=== PATIENT | male | born 1950 | race Caucasian/White ===

== ENCOUNTER 2020-03-20 10:41 | Emergency (ER) | payer MEDICARE, SELFPAY ==
--- NOTE | ~2020-03-20 | CT_ITS ---
EXAMINATION: CT brain wo con INDICATION: Behavioral changes, history of dementia COMPARISON: None TECHNIQUE: Standard unenhanced head CT. The dose-length product (DLP) was 605.33 mGy-cm. The mA was a djusted according to patient size. Iterative reconstruction technique was employed. FINDINGS: There is no acute intraparenchymal hemorrhage. No evidence of mass lesion. No evidence of a cute infarction. There is mild periventricular and subcortical hypodensity probably related to small vessel ischemic disease. There is mild prominence of the sulci and ventricles related to cerebral atr ophy. Intracranial calcified cerebral atherosclerosis is noted. There are no extra-axial collections. There is no mass effect or midline shift. The orbits and soft tissues are unremarkable. The visuali zed sinuses and mastoid air cells are well aerated. IMPRESSION: 1. No acute intracranial abnormality. 2. Age related findings. Reviewed, dictated and finalized at location A. E GLASS GRINDER
[2020-03-20 10:40] VITALS: PULSE 66; RESP 16; TEMP 36.8; O2SAT 100
--- NOTE | 2020-03-20 10:58 | ECG_ITS ---
Measurements Intervals [place] Rate: 68 P: 67 SC: 150 QRS: -15 QRSD: 86 T: 30 QT: 399 QTc: 426 Interpretive Statements SINUS RHYTHM NORMAL ECG Electronically Signed On 03-20-2020 15:07:55 CATTERY OPERATOR by Srinivasa Hair D.O.
[2020-03-20 11:05] LABS: Basophils Percent Auto 0.8 % (0.2-1.2); Eosinophils Absolute Auto 0.1 K/mm3 (0-0.3); Eosinophils Percent Auto 1.8 % (0-4.4); Hematocrit 47.9 % (42.0-52.0); Hemoglobin 16.7 g/dL (14.0-18.0); Immature Granulocyte Absolute 0.02 K/mm3 (0.00-0.031); Immature Granulocyte Percent A 0.4 % (0-0.5); Lymphocytes Absolute Auto 0.89 K/mm3 (0.9-3.2); Lymphocytes Percent Auto 17.7 % (18.3-44.2); Mean Corpuscular HGB Conc 34.9 g/dl (32-36); Mean Corpuscular Hemoglobin 34.2 pg (26-34); Monocytes Absolute Auto 0.4 K/mm3 (0.1-0.6); Monocytes Percent Auto 6.9 % (2.6-8.5); Neutrophils Absolute Auto 3.7 K/mm3 (1.3-6.7); Neutrophils Percent Auto 72.4 % (45.5-73.1); Platelet Count Result 167 k/mm3 (150-375); Red Blood Count 4.89 M/mm3 (4.6-6.20); Red Cell Distribution Width 12.1 % (11.5-14.5)
[2020-03-20 11:06] VITALS: BP 156/78; PULSE 65; RESP 16; O2SAT 98
[2020-03-20 11:17] LABS: Alanine Aminotransferase 24 U/L (4-50); Albumin Level 4.8 g/dL (3.5-5.1); Alkaline Phosphatase 76 U/L (38-126); Anion Gap 9 mmol/L (8-16); Aspartate Amino Transferase 31 U/L (17-59); Bilirubin,Total 1.3 mg/dL (0.2-1.3); Blood Urea Nitrogen 18 mg/dL (9-20); Calcium 9.6 mg/dL (8.4-10.2); Carbon Dioxide 31 mmol/L (22-30); Chloride 102 mmol/L (98-107); Estimated CRCL calculation 75 ml/min; Estimated Glomerular Filt Rate > 60; Glucose 182 mg/dL (75-110); Potassium 3.7 mmol/L (3.4-5.0); Sodium 142 mmol/L (137-145)
--- NOTE | 2020-03-20 11:36 | ED.AMS ---
HPI - Altered Mental Status General Chief Complaint: Altered Mental Status Stated Complaint: outburst Time Seen by Provider: 03/20/20 10:51 Source: patient and family Mode of arrival: ambulatory Limitations: dementia History of Present Illness HPI narrative: This patient is a 69 year old male with history of dementia who presents with his for evaluation of a behavior change. His states started a week ago he has been more agitated and wondering around a night. She reports he is telling her that he hates her . She reports that a few days ago she was telling him to stop doing something and he grabbed her shoulders. She reports a local doctor that is a family friend told her to come to ER. She reports his PCP changed his dementia medication in January. He was placed back on his original medication 1.5 weeks ago and she noticed a changed in behavior then. Patient has no complaints. Related Data Allergies Allergy/AdvReac Type Severity Reaction Status Date / Time ciprofloxacin AdvReac Mild headache Verified 03/20/20 11:05 Review of Systems Review of Systems: All systems reviewed & are unremarkable except as noted in HPI and below Constitutional: Constitutional: Denies chills and Denies fever(s) Respiratory: Respiratory: Denies cough and Denies dyspnea Gastrointestinal: Gastrointestinal: Denies abdominal pain, Denies diarrhea, Denies nausea and Denies vomiting Genitourinary: Genitourinary: Denies dysuria and Denies urinary frequency Neurologic: Denies headache(s) and Denies numbness PMFSH Past Medical History Medical History Controlled diabetes mellitus without long-term current use of insulin Dementia Diabetes mellitus with hyperglycemia Mixed hyperlipidemia 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 Surgical History Surgical History S/P Mohs surgery for basal cell carcinoma Family History Family History Father Family history of type 2 diabetes mellitus Mother Family history of type 2 diabetes mellitus Other Diabetes mellitus Family history of cardiovascular disease Family history of kidney disease Social History Social History (Updated 03/10/20 @ 10:23 by Ashlie Giron) Social History: Smoking status: Never smoker Second hand tobacco smoke exposure: No Alcohol intake: never Substance use: never Substance use type: does not use Gender identity (if verbalized by the patient): Male Exam Const: General: no acute distress and alert Limitations: other limitations (oriented to self and hospital) HENMT: Head: normocephalic and atraumatic Face and sinus: face symmetric Throat: posterior oropharynx normal Eyes: Pupils: Equal, round and reactive pupils present EOM: EOMs intact bilaterally Chest: Chest palpation & inspection: normal inspection of the chest Resp: Effort & Inspection: normal respiratory effort and no retractions Auscultation: clear to auscultation bilaterally Cardio: Rate: regular rate Rhythm: regular rhythm Heart sounds: no murmurs GI: GI Palp: Yes Soft to palpation, No Tenderness to palpation present (GI), No Guarding due to palpation present (GI) and No Rigid due to palpation Skin: General skin exam: normal color Rashes: no rashes Neuro: General: moves all extremities, no meningeal signs and CN's II-XI intact bilaterally Psych: Mental Status: mental status grossly normal Affect: normal affect Attitude: cooperative Course Reevaluation(s) Reevaluation #1: I discussed with patient and that labs and CT are unremarkable. This appears to be progression of dementia. He has an appointment with emlvin MILLER on Saturday. Date: 03/20/20 Time: 12:35 Vital Signs Vital signs: Vital Signs Temperature 98.2 F 03/20/20 10:40 Pulse Rate 66 03/20/20 10:40 Respirato
[2020-03-20 12:23] LABS: Add Urine Microscopic? YES; Appearance Urine Clear (Clear); Bilirubin Urine Negative (Negative); Blood Urine Negative (Negative); Color Urine Yellow (Yellow); Glucose Urine UA 1+ mg/dL (Negative); Ketones Urine Negative (Negative); Leukocyte Esterase Ur Negative LEU/UL (Negative); Mucus Urine Rare /lpf; Nitrate Urine Negative (Negative); Protein Urine Negative (Negative); RBC Urine 0-2 /hpf (0-2); Specific Grav Ur 1.013 (1.001-1.035); Squamous Epithelial Cell Urine Rare /hpf (Few); Urobilinogen Urine Negative mg/dL (<2.0); WBC Urine 0-3 /hpf
[2020-03-20 12:37] VITALS: BP 156/70; PULSE 65; RESP 18; TEMP 36.3; O2SAT 100
== END 2020-03-20 13:07 | disposition home or self-care (01) ==
PROVIDERS: Emergency Provider General Practice; PCP Family Medicine
DX: F03.91 Unspecified dementia, unspecified severity, with behavioral disturbance (principal); E11.9 Type 2 diabetes mellitus without complications; E78.2 Mixed hyperlipidemia; R90.82 White matter disease, unspecified; Z85.828 Personal history of other malignant neoplasm of skin
CPT/HCPCS: 36415; 70450; 80053; 81001; 85025; 93005; 99284

== ENCOUNTER 2020-07-09 21:12 | Emergency (ER) | payer MEDICARE, SELFPAY ==
--- NOTE | ~2020-07-09 | CT_ITS ---
EXAMINATION: CT brain wo con INDICATION: Altered mental status COMPARISON: None TECHNIQUE: Standard unenhanced head CT. The dose-length product (DLP) was 605.33 mGy-cm. The mA was a djusted according to patient size. Iterative reconstruction technique was employed. FINDINGS: There is no acute intraparenchymal hemorrhage. No evidence of mass lesion. No evidence of a cute infarction. There is mild periventricular and subcortical hypodensity probably related to small vessel ischemic disease. There is mild prominence of the sulci and ventricles related to cerebral atr ophy. Intracranial calcified cerebral atherosclerosis is noted. There are no extra-axial collections. There is no mass effect or midline shift. The orbits and soft tissues are unremarkable. The visuali zed sinuses and mastoid air cells are well aerated. IMPRESSION: 1. No acute intracranial abnormality. 2. Age related findings. Reviewed, dictated and finalized at location A. UATION ENGINEER
[2020-07-09 21:01] VITALS: BP 149/74; PULSE 85; RESP 16; TEMP 36.4; O2SAT 96
--- NOTE | 2020-07-09 21:47 | ED.GENADULT ---
HPI - General Adult General Chief complaint: Unspecified Stated complaint: aggitation Time Seen by Provider: 07/09/20 21:47 History of Present Illness HPI narrative: Patient is a 69-year-old gentleman who presents the emergency department with chief complaint of aggressive behavior. Patient is a resident of a memory care unit and has had more confusion. The facility is concerned that he may have a UTI. The family states that he was recently started on trazodone for agitation. They report that he is not really been sleeping well over the last several days. The facility reported that he got aggressive with one of the nurses but when EMS arrived he became docile. Related Data Home Medications Medication Instructions Recorded Confirmed clonazepam 07/09/20 07/09/20 famotidine 20 mg PO DAILY 07/09/20 07/09/20 melatonin 5 mg PO HS PRN 07/09/20 07/09/20 memantine 10 mg PO QPM 07/09/20 07/09/20 trazodone 50 mg PO TID PRN 07/09/20 07/09/20 Allergies Allergy/AdvReac Type Severity Reaction Status Date / Time ciprofloxacin AdvReac Mild headache Verified 03/20/20 11:05 Review of Systems Review of Systems: Narrative: A 10 system review of systems was completed on the patient and is negative except for what is stated in the HPI. Nursing and ancillary documentation was reviewed. 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 Surgical History Surgical History S/P Mohs surgery for basal cell carcinoma Family History Family History Father Family history of type 2 diabetes mellitus Mother Family history of type 2 diabetes mellitus Other Diabetes mellitus Family history of cardiovascular disease Family history of kidney disease Social History Social History Social History: Smoking status: Never smoker Second hand tobacco smoke exposure: No Alcohol intake: never Substance use: never Substance use type: does not use Gender identity (if verbalized by the patient): Male Exam Narrative: Exam Narrative: GENERAL: Well-appearing, well-nourished, and in no acute distress. HEAD: Normocephalic, atraumatic. EYES: PERRLA and EOMI. ENT: Nares clear, no rhinorrhea or epistaxis. Mucous membranes moist. NECK: Supple. CHEST: Clear to auscultation. No respiratory distress. HEART: Regular rate and rhythm. No murmur heard. Normal peripheral pulses. ABDOMEN: Soft, nontender, nondistended, normal active bowel sounds. EXTREMITIES: Normal range of motion. No edema. SKIN: Warm, dry, no rash. NEURO: No focal deficits. Alert confused at neurological baseline. PSYCH: Normal mood and affect. Course Course Emergency Course: Laboratory studies are within normal limits urinalysis shows no evidence of UTI CT head shows no evidence of acute abnormality. Vital Signs Vital signs: Vital Signs Temperature 36.4 C L 07/09/20 21:01 Pulse Rate 85 07/09/20 21:01 Respiratory Rate 16 07/09/20 21:01 Blood Pressure 149/74 H 07/09/20 21:01 Pulse Oximetry 96 07/09/20 21:01 Temperature 36.4 C L 07/09/20 21:01 Pulse Rate 67 07/10/20 04:00 Respiratory Rate 16 07/10/20 04:00 Blood Pressure 151/76 H 07/10/20 04:00 Pulse Oximetry 100 07/10/20 04:00 Medical Decision Making Vital Signs Vital Signs: Vital Signs Temperature 36.4 C L 07/09/20 21:01 Pulse Rate 85 07/09/20 21:01 Respiratory Rate 16 07/09/20 21:01 Blood Pressure 149/74 H 07/09/20 21:01 Pulse Oximetry 96 07/09/20 21:01 Temperature 36.4 C L 07/09/20 21:01 Pulse Rate 67 07/10/20 04:00
--- NOTE | 2020-07-09 21:48 | ECG_ITS ---
Measurements Intervals [place] Rate: 66 P: 64 NV: 143 QRS: -15 QRSD: 83 T: 12 QT: 414 QTc: 435 Interpretive Statements SINUS RHYTHM DELAYED PRECORDIAL R/S TRANSITION BORDERLINE T WAVE ABNORMALITY- INFERIOR LEADS BORDERLINE ECG Electronically Signed On 07-10-2020 7:41:22 MAP MAKER by Srinivasa Hair D.O.
[2020-07-09 22:06] LABS: Basophils Percent Auto 0.7 % (0.2-1.2); Eosinophils Absolute Auto 0.1 K/mm3 (0-0.3); Eosinophils Percent Auto 2.8 % (0-4.4); Hematocrit 42.5 % (42.0-52.0); Immature Granulocyte Absolute 0.02 K/mm3 (0.00-0.031); Immature Granulocyte Percent A 0.5 % (0-0.5); Lymphocytes Absolute Auto 0.65 K/mm3 (0.9-3.2); Mean Corpuscular HGB Conc 35.3 g/dl (32-36); Mean Corpuscular Hemoglobin 33.9 pg (26-34); Mean Corpuscular Volume 96.2 fl (80-100); Mean Platelet Volume 9.5 fl (7.4-10.4); Monocytes Absolute Auto 0.4 K/mm3 (0.1-0.6); Neutrophils Absolute Auto 3.1 K/mm3 (1.3-6.7); Platelet Count Result 163 k/mm3 (150-375); Red Blood Count 4.42 M/mm3 (4.6-6.20); Red Cell Distribution Width 11.9 % (11.5-14.5); White Blood Count 4.3 K/mm3 (4.5-10.0)
[2020-07-09 22:18] LABS: Alanine Aminotransferase 55 U/L (4-50); Albumin Level 4.1 g/dL (3.5-5.1); Alkaline Phosphatase 74 U/L (38-126); Anion Gap 6 mmol/L (8-16); Aspartate Amino Transferase 51 U/L (17-59); Bilirubin,Total 0.5 mg/dL (0.2-1.3); Blood Urea Nitrogen 16 mg/dL (9-20); Calcium 9.2 mg/dL (8.4-10.2); Carbon Dioxide 32 mmol/L (22-30); Chloride 104 mmol/L (98-107); Estimated CRCL calculation 81 ml/min; Estimated Glomerular Filt Rate > 60; Glucose 185 mg/dL (75-110); Potassium 3.5 mmol/L (3.4-5.0); Sodium 142 mmol/L (137-145)
[2020-07-09 22:19] LABS: Acetaminophen < 10 ug/mL (10-30); Ethanol < 10 mg/dL (<10); Salicylate < 1.0 mg/dL (2-20)
[2020-07-09 22:30] LABS: Add Urine Microscopic? YES; Appearance Urine Clear (Clear); Bilirubin Urine Negative (Negative); Blood Urine Negative (Negative); Color Urine Yellow (Yellow); Glucose Urine UA 1+ mg/dL (Negative); Ketones Urine Negative (Negative); Leukocyte Esterase Ur Negative LEU/UL (Negative); Mucus Urine Rare /lpf; Nitrate Urine Negative (Negative); Protein Urine Negative (Negative); RBC Urine 0-2 /hpf (0-2); Specific Grav Ur 1.014 (1.001-1.035); Squamous Epithelial Cell Urine Rare /hpf (Few); WBC Urine 0-3 /hpf
[2020-07-09 22:43] LABS: Amphetamine Screen Urine Negative (Negative); Barbiturate Screen Urine Negative (Negative); Benzodiazepines Screen Urine Negative (Negative); Cannabinoid Screen Urine Negative (Negative); Cocaine Screen Urine Negative (Negative); Methadone Screen Urine Negative (Negative); Opiate Screen Urine Negative (Negative); Phencyclidine Screen Urine Negative (Negative)
--- NOTE | 2020-07-10 01:24 | PC.NURSE ---
spoke with Kamila at [place] informing her of pt disposition.
[2020-07-10 04:00] VITALS: BP 151/76; PULSE 67; RESP 16; O2SAT 100
== END 2020-07-10 04:00 ==
PROVIDERS: Emergency Provider Emergency Medicine; PCP Family Medicine
DX: F03.91 Unspecified dementia, unspecified severity, with behavioral disturbance (principal); E11.9 Type 2 diabetes mellitus without complications; E78.2 Mixed hyperlipidemia; Z85.828 Personal history of other malignant neoplasm of skin; Z79.899 Other long term (current) drug therapy; R94.31 Abnormal electrocardiogram [ECG] [EKG]
CPT/HCPCS: 36415; 70450; 80053; 80307; 81001; 84443; 85025; 93005; 99284

== ENCOUNTER 2020-12-14 15:50 | Emergency (ER) | payer MEDICARE, SELFPAY ==
--- NOTE | ~2020-12-14 | CT_ITS ---
EXAMINATION: CT brain wo con DATE: 12/14/2020 17:16 INDICATION: Fall and altered mental status. TECHNIQUE: Computed tomography (CT) of the head was performed without intravenous contrast. Sagittal and coronal reconstructions were performed. The mA was adjusted according to patient size. Iterative reconstruction technique was employed. The dose-length product was 605.33 mGy-cm. COMPARISON: head CT dated 07/09/2020 FINDINGS: No fracture. No acute intracranial hemorrhage, acute infarction or abnormal extra axial fluid collect ion. There is mild scattered white matter hypoattenuation consistent with chronic small vessel ischem ic disease. Symmetric prominence of the sulci consistent with moderate age-appropriate diffuse cerebr al volume loss. Ventricles are normal and symmetric. No mass/mass effect. Intracranial calcified cere bral atherosclerosis is noted. The orbits, paranasal sinuses and mastoid air cells are normal. IMPRESSION: 1. No fracture or acute intracranial process. 2. Age-related changes including moderate diffuse volume loss and mild scattered white matter hypoatt enuation consistent with chronic small vessel schema disease. Reviewed, dictated and finalized at location A. IMPRESSION: 1. No fracture or acute intracranial process. 2. Age-related changes including moderate diffuse volume loss and mild scattere d white matter hypoattenuation consistent with chronic small vessel schema dise ase.
--- NOTE | ~2020-12-14 | XR_ITS ---
EXAMINATION: XR chest 1V portable INDICATION: Transient alteration of awareness, cough TECHNIQUE: Portable AP chest at 1610 hours COMPARISON: None available FINDINGS: There are patchy opacities of the mid and lower lung zones. No definite pleural effusion or pneumothorax is identified. The cardiomediastinal silhouette is normal. Surgical clips in the right upper quadrant are likely from prior cholecystectomy. IMPRESSION: 1. Patchy opacities of the mid and lower lung zones, consistent with atelectasis versus pneumonia. Reviewed, dictated and finalized at location A. IMPRESSION: 1. Patchy opacities of the mid and lower lung zones, consistent with atelectasi s versus pneumonia.
[2020-12-14 15:52] VITALS: BP 146/78; PULSE 92; RESP 20; TEMP 37.5; O2SAT 100
--- NOTE | 2020-12-14 16:05 | ECG_ITS ---
Measurements Intervals [place] Rate: 93 P: 8 LA: 131 QRS: -20 QRSD: 84 T: 0 QT: 340 QTc: 425 Interpretive Statements SINUS RHYTHM POOR R WAVE PROGRESSION, ANTERIOR LEADS BORDERLINE ST-T WAVE ABNORMALITY- INFERIOR LEADS BASELINE ARTIFACT- I, II, III, AVR, AVL, AVF, V2 BORDERLINE ECG Electronically Signed On 12-14-2020 17:38:00 CDT by Srinivasa Hair D.O.
--- NOTE | 2020-12-14 16:37 | ED.GENADULT ---
HPI - General Adult General Chief complaint: Altered Mental Status Stated complaint: AMS Time Seen by Provider: 12/14/20 16:03 Source: patient and RN notes reviewed Mode of arrival: ambulatory Limitations: no limitations History of Present Illness HPI narrative: Patient is a 70-year-old demented male who presents after falling out of his bed today also has a sense not wanted to ambulate he is normally ANO x1 his is present in the emergency department on arrival presenting per EMS. Patient is at baseline per he has no complaints he is a limited historian secondary to his dementia there is no obvious trauma Related Data Home Medications Medication Instructions Recorded Confirmed clonazepam 07/09/20 07/09/20 famotidine 20 mg PO DAILY 07/09/20 07/09/20 melatonin 5 mg PO HS PRN 07/09/20 07/09/20 memantine 10 mg PO QPM 07/09/20 07/09/20 trazodone 50 mg PO TID PRN 07/09/20 07/09/20 Allergies Allergy/AdvReac Type Severity Reaction Status Date / Time ciprofloxacin AdvReac Mild headache Verified 03/20/20 11:05 Review of Systems Review of Systems: All systems reviewed & are unremarkable except as noted in HPI and below PMFSH Past Medical History Medical History Controlled diabetes mellitus without long-term current use of insulin Dementia Diabetes mellitus with hyperglycemia Mixed hyperlipidemia 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 Surgical History Surgical History S/P Mohs surgery for basal cell carcinoma Family History Family History Father Family history of type 2 diabetes mellitus Mother Family history of type 2 diabetes mellitus Other Diabetes mellitus Family history of cardiovascular disease Family history of kidney disease Social History Social History Social History: Smoking status: Never smoker Second hand tobacco smoke exposure: No Alcohol intake: never Substance use: never Substance use type: does not use Gender identity (if verbalized by the patient): Male Exam Narrative: GENERAL: Well-appearing, well-nourished, and in no acute distress. HEAD: Normocephalic, atraumatic. EYES: PERRLA and EOMI. ENT: Nares clear, no rhinorrhea or epistaxis. Mucous membranes moist. Oropharynx without tonsillar hypertrophy exudate or other lesions. NECK: Supple. No adenopathy or masses. CHEST: Clear to auscultation. No respiratory distress. No wheezes rales or rhonchi HEART: Regular rate and rhythm. No murmur heard. Normal peripheral pulses. ABDOMEN: Soft, nontender, nondistended EXTREMITIES: Normal range of motion. No edema. SKIN: Warm, dry, no rash. NEURO: Alert and oriented to self. Patient has difficulty following commands which his notes is normal PSYCH: Flat affect Course Course Emergency Course: Patient evaluated in the emergency department has remained stable afebrile nontoxic-appearing no emesis was fed was hydrated as well his lactate has improved and is near normal patient has been accompanied by his during his stay he will be discharged back to the senior living feels comfortable with this she will also see him tomorrow and will return if symptoms worsen or concerns will be placed on antibiotics for the potential of developing pneumonia patient does not had any URI symptoms or cough in the emergency department was able to ambulate with help. Patient had reportedly negative Covid test today Vital Signs Vital signs: Vital Signs Temperature 99.5 F 12/14/20 15:52 Pulse Rate 92 12/14/20 15:52 Respiratory Rate 20 12/14/20 15:52 Blood Pressure 146/78 H 12/14/20 15:52 Pulse Oximetry 100 12/14/20 15:52 Temperature 99.5 F 12/14/20 15:52 Pulse Rate 87 12/14/20 18:43 Respiratory Rate 20 07
[2020-12-14 16:56] LABS: Basophils Percent Auto 0.9 % (0.2-1.2); Eosinophils Percent Auto 0.7 % (0-4.4); Hematocrit 47.9 % (42.0-52.0); Hemoglobin 16.5 g/dL (14.0-18.0); Immature Granulocyte Absolute 0.02 K/mm3 (0.00-0.031); Immature Granulocyte Percent A 0.4 % (0-0.5); Lymphocytes Percent Auto 8.9 % (18.3-44.2); Mean Corpuscular HGB Conc 34.4 g/dl (32-36); Mean Corpuscular Volume 92.8 fl (80-100); Mean Platelet Volume 9.8 fl (7.4-10.4); Monocytes Absolute Auto 0.5 K/mm3 (0.1-0.6); Monocytes Percent Auto 11.4 % (2.6-8.5); Neutrophils Absolute Auto 3.5 K/mm3 (1.3-6.7); Neutrophils Percent Auto 77.7 % (45.5-73.1); Platelet Count Result 176 k/mm3 (150-375); Red Blood Count 5.16 M/mm3 (4.6-6.20); Red Cell Distribution Width 12.2 % (11.5-14.5); White Blood Count 4.5 K/mm3 (4.5-10.0)
[2020-12-14 17:06] LABS: Lactic Acid Reflex 2.9 mmol/L (0.7-2.1)
[2020-12-14 17:07] LABS: INR 0.9; Prothrombin Time 12.2 Seconds (11.1-14.7)
[2020-12-14 17:09] LABS: Alanine Aminotransferase 18 U/L (4-50); Albumin Level 4.4 g/dL (3.5-5.1); Alkaline Phosphatase 99 U/L (38-126); Anion Gap 12 mmol/L (8-16); Aspartate Amino Transferase 23 U/L (17-59); Bilirubin,Total 0.6 mg/dL (0.2-1.3); Blood Urea Nitrogen 13 mg/dL (9-20); CRP 2.4 mg/dL (<1.0); Calcium 9.6 mg/dL (8.4-10.2); Carbon Dioxide 27 mmol/L (22-30); Chloride 96 mmol/L (98-107); Estimated CRCL calculation 81 ml/min; Estimated Glomerular Filt Rate > 60; Glucose 305 mg/dL (65-110); Lipase 60 U/L (23-300); Potassium 4.2 mmol/L (3.4-5.0); Sodium 135 mmol/L (137-145)
[2020-12-14] MEDS: SODIUM CHLORIDE 0.9% IV 500 ML 999 ML IV CONT (17:49)
[2020-12-14 17:57] LABS: Add Urine Microscopic? YES; Appearance Urine Clear (Clear); Bacteria Urine Trace /hpf; Bilirubin Urine Negative (Negative); Blood Urine Negative (Negative); Color Urine Yellow (Yellow); Glucose Urine UA 3+ mg/dL (Negative); Ketones Urine 1+ mg/dL (Negative); Leukocyte Esterase Ur Negative LEU/UL (Negative); Nitrate Urine Negative (Negative); Protein Urine Negative (Negative); RBC Urine 0-2 /hpf (0-2); WBC Urine 0-3 /hpf
[2020-12-14 18:04] LABS: Specific Grav Ur 1.038 (1.001-1.035)
[2020-12-14] MEDS: SODIUM CHLORIDE 0.9% IV 1,000 ML 999 ML IV CONT (18:41)
[2020-12-14 18:43] VITALS: BP 137/82; PULSE 87; RESP 20; O2SAT 100
[2020-12-14 19:54] LABS: Reflex Lactic Acid Yes or No Add Lactic
[2020-12-14 20:29] LABS: Lactic Acid 2.2 mmol/L (0.7-2.1)
[2020-12-14 21:41] VITALS: BP 144/79; PULSE 78; RESP 16; O2SAT 100
[2020-12-14 21:57] VITALS: BP 147/84; PULSE 80; RESP 18; O2SAT 100
== END 2020-12-14 22:01 ==
PROVIDERS: Emergency Medicine Emergency Medical Services; Emergency Provider Emergency Medicine; PCP Nurse Practitioner Family
DX: J18.9 Pneumonia, unspecified organism (principal); R41.82 Altered mental status, unspecified; E11.9 Type 2 diabetes mellitus without complications; F03.90 Unspecified dementia, unspecified severity, without behavioral disturbance, psychotic disturbance, mood disturbance, and anxiety; E78.5 Hyperlipidemia, unspecified; R90.82 White matter disease, unspecified
CPT/HCPCS: 36415; 70450; 71045; 80053; 81001; 83605; 83690; 85025; 85610; 85730; 86140; 87040; 87804; 93005; 96361; 96365; 99284; J0696; J7030; J7040